=== PATIENT | female | born 1955 | race Caucasian/White ===

== ENCOUNTER 2022-11-05 07:35 | Day surgery (SDC) | payer BC, MEDICARE ==
[2022-11-02 13:25] VITALS: BMI 27.2
[~2022-11-05 07:35] MED LIST: LACTATED RINGERS 1,000 ML IV SCH
[2022-11-05 07:56] VITALS: RESP 16; TEMP 97.3
[2022-11-05] MEDS ORDERED: PROPOFOL 10 MG/ML 20 ML VIAL IV ONE (08:08)
--- NOTE | 2022-11-05 08:28 | P.PCN ---
Date of Procedure: 11/05/22 Procedure(s) Performed: BRIEF HISTORY: Patient is a 67-year-old pleasant white female scheduled for an elective colonoscopy as a part of screening for colon cancer and passive cologuard. Her last colonoscopy was 15 years ago. PROCEDURE PERFORMED: Colonoscopy. PREOPERATIVE DIAGNOSIS: Screening for colon cancer and positive cologuard IV sedation per Anesthesia. PROCEDURE: After informed consent was obtained, the patient, was brought into the endoscopy unit. IV sedation was administered by Anesthesia under continuous monitoring. Digital rectal examination was normal. Initially the Olympus CF-160 flexible video colonoscope was then inserted in the rectum, gradually advanced into the cecum without any difficulty. Careful examination was performed as the scope was gradually being withdrawn. Ileocecal valve and the appendiceal orifice were visualized and appeared normal. Prep was excellent. Mucosa of the cecum, ascending colon, transverse colon, descending colon, sigmoid colon, and rectum appeared normal. Scattered left-sided diverticulosis. Retroflexion was performed in the rectum and no lesions were seen. The patient tolerated the procedure well. IMPRESSION: Normal-appearing colon from rectum to cecum with no evidence of colorectal neoplasia Scattered left-sided diverticula . RECOMMENDATIONS: Findings of this examination were discussed with the patient . She was advised to have a repeat screening colonoscopy in 10 years.
[2022-11-05 08:51] VITALS: BP 112/61; PULSE 65
== END 2022-11-05 09:20 | disposition home or self-care (01) ==
LOC: ORWHC2ENDO 07:35
PROVIDERS: ATTEND Internal Medicine Gastroenterology
DX: Z12.11 Encounter for screening for malignant neoplasm of colon (principal); R19.5 Other fecal abnormalities; K57.30 Diverticulosis of large intestine without perforation or abscess without bleeding; Z86.69 Personal history of other diseases of the nervous system and sense organs; Z79.899 Other long term (current) drug therapy
CPT/HCPCS: 45378; J2704

== ENCOUNTER → 2023-05-12 | Outpatient (CLI) | payer MEDICARE ==
[2023-05-12 10:55] LABS: Basophils # (A) 0.07 X 10*3/uL (0.00-0.10); Basophils % (A) 1.2 %; Eosinophils # (A) 0.15 X 10*3/uL (0.04-0.35); Eosinophils % (A) 2.5 %; HCT 40.5 % (37.2-46.3); HGB 13.2 d/dL (12.0-15.0); Lymphocytes # (A) 2.02 X 10*3/uL (0.90-5.00); Lymphocytes % (A) 33.2 %; MCH 29.4 pg (27.0-32.0); MCHC 32.6 d/dL (32.0-37.0); MCV 90.2 FL (80.0-97.0); Monocytes # (A) 0.31 X 10*3/uL (0.20-1.00); Monocytes % (A) 5.1 %; NRBC Per 100 WBC 0 X 10*3/uL (0.00-0.01); Neutrophils # (A) 3.52 X 10*3/uL (1.80-7.70); Neutrophils % (A) 57.8 %; Platelet Count 234 X 10*3/uL (140-440); RBC 4.49 X 10*6/uL (4.10-5.20); RDW 13.1 % (11.5-14.5); WBC 6.08 X 10*3/uL (4.50-10.00)
[2023-05-12 11:27] LABS: ALT 21 U/L (8-44); AST 19 U/L (13-35); Albumin 4.2 d/dL (3.8-4.9); Alkaline Phosphatase 79 U/L (41-126); Calcium 9.3 mg/dL (8.7-10.3); Carbon Dioxide 28.6 mmol/L (21.6-31.8); Chloride 108 mmol/L (96-109); Globulin 2.1 d/dL (1.6-3.3); Glucose 96 mg/dL (70-110); Potassium 4.8 mmol/L (3.5-5.5); Sodium 146 mmol/L (135-145); Total Bilirubin 0.4 mg/dL (0.3-1.2); Total Protein 6.3 d/dL (6.2-8.2); VLDL Calculation 11.54 mg/dL (5.00-40.00)
== END | disposition home or self-care (01) ==
LOC: LABWHC1 07:37
PROVIDERS: ATTEND Family Medicine
DX: Z00.00 Encounter for general adult medical examination without abnormal findings (principal); E53.9 Vitamin B deficiency, unspecified; E78.5 Hyperlipidemia, unspecified; E55.9 Vitamin D deficiency, unspecified
CPT/HCPCS: 36415; 80053; 80061; 82306; 82607; 84443; 85025